=== PATIENT | female | born 1990 ===

== ENCOUNTER 2018-12-03 04:55 | Emergency (ER) | payer OTHER ==
[2018-12-03] MEDS ORDERED: HYDROMORPHONE 1 MG/ML SYRINGE IV PRN (05:10)
[2018-12-03] MEDS ORDERED: HYDROMORPHONE 1 MG/ML SYRINGE ONE (05:12)
[2018-12-03] MEDS ORDERED: ONDANSETRON HCL 4 MG/2 ML SOL IV ONE (05:12)
[2018-12-03] MEDS ORDERED: SODIUM CHLORIDE 0.9% 1000ML 1,000 ML IV SCH (05:15)
[2018-12-03 05:36] VITALS: TEMP 97.5
[2018-12-03 05:38] LABS: BASOPHILS % (AUTO) 1 % (0-3); CALCIUM 8.9 mg/dl (8.5-10.1); CARBON DIOXIDE 28.8 mEq/L (21-32); CREATININE 0.63 mg/dl (0.60-1.00); EOSINOPHILS % (AUTO) 1 % (0-9); HEMATOCRIT 51 % (35-47); LYMPHOCYTES % (AUTO) 23.9 % (10-50); MEAN CORPUSCULAR HEMOGLOBIN 33.9 pg (27.0-32.0); MEAN CORPUSCULAR HGB CONC 37.8 gm/dl (32.0-36.0); MEAN CORPUSCULAR VOLUME 90 fL (81-99); MONOCYTES % (AUTO) 7.7 % (0-12); NEUTROPHILS % (AUTO) 66.9 % (37-80); POTASSIUM 3.7 mMol/L (3.5-5.1)
[2018-12-03 05:41] LABS: ALCOHOL 0.213 gm/dl (0.000-0.08)
[2018-12-03 05:50] LABS: HEMOGLOBIN 19.3 gm/dl (12.0-15.5)
[2018-12-03 05:51] LABS: ANISOCYTOSIS SLIGHT
[2018-12-03] MEDS ORDERED: MORPHINE SULFATE 10 MG/ML SOL IV ONE (06:05)
[2018-12-03] MEDS ORDERED: MORPHINE SULFATE 10 MG/ML SOL ONE (06:07)
[2018-12-03] MEDS ORDERED: LIDOCAINE HCL 2% (VISCOUS) 15 ML SOL ONE (06:08)
[2018-12-03] MEDS ORDERED: ONDANSETRON HCL 4 MG/2 ML SOL ONE (06:09)
[2018-12-03] MEDS ORDERED: LIDOCAINE HCL 2% (VISCOUS) 15 ML SOL PO ONE (06:15)
[2018-12-03] MEDS ORDERED: LIDOCAINE HCL 1% MPF 30 SOL ONE (06:38)
[2018-12-03] MEDS ORDERED: LIDOCAINE HCL 1% MPF 30 SOL INFIL ONE (06:45)
[2018-12-03 06:59] VITALS: BP 164/117; PULSE 99; RESP 20; O2SAT 98
== END 2018-12-03 07:15 | disposition home or self-care (01) | DRG 605 ==
LOC: ED 04:55
DX: S01.81XA Laceration without foreign body of other part of head, initial encounter (principal); S00.83XA Contusion of other part of head, initial encounter; Y04.2XXA Assault by strike against or bumped into by another person, initial encounter; M79.642 Pain in left hand; M79.641 Pain in right hand; R40.2362 Coma scale, best motor response, obeys commands, at arrival to emergency department; R40.2142 Coma scale, eyes open, spontaneous, at arrival to emergency department; R40.2252 Coma scale, best verbal response, oriented, at arrival to emergency department
CPT/HCPCS: 12011; 70486; 73130; 80048; 80307; 85025; 96365; 96374; 96375; 99283; 99285; G0390; J2270; J2405; A9270-GY; J1170; J2001